=== PATIENT | female | born 1965 | race Caucasian/White ===

== ENCOUNTER 2023-04-18 16:01 | Emergency (ER) | payer OTHER ==
[~2023-04-18] VITALS: Ht 167.6 cm; Wt 91.0 kg
[~2023-04-18 16:01] MED LIST: ALBU18HF12 IH; BENZ-227 PO
[2023-04-18 16:02] VITALS: TEMP 98.4
[2023-04-18] MEDS ORDERED: IBUP-1506 PO (16:04)
[2023-04-18 17:24] VITALS: BP 139/86; PULSE 86; RESP 16
[2023-04-18] MEDS ORDERED: IBUP-1492 PO (18:04)
== END 2023-04-18 18:43 | disposition home or self-care (01) ==
LOC: EMS 16:02
DX: S60.221A Contusion of right hand, initial encounter (principal); F17.210 Nicotine dependence, cigarettes, uncomplicated; V49.88XA Car occupant (driver) (passenger) injured in other specified transport accidents, initial encounter; Y93.89 Activity, other specified; Y92.89 Other specified places as the place of occurrence of the external cause; Y99.8 Other external cause status
CPT/HCPCS: 99284; 73110-TC; 73130-TC; Z7502

== ENCOUNTER 2024-10-12 11:00 | Emergency (ER) | payer OTHER ==
[~2024-10-12] VITALS: Ht 167.6 cm; Wt 91.0 kg
[~2024-10-12 11:00] MED LIST changes: +IBUP-1492 PO; +IBUP-1506 PO
[2024-10-12] MEDS: SODIUM CHLORIDE 0.9% 250 ML IRRIG SOLUTION BOTTLE IRRIG ONE (13:31)
[2024-10-12] MEDS: ACETAMINOPHEN 500 MG TABLET PO ONE (13:31)
[2024-10-12] MEDS: BACITRACIN 0.9 GM PACKET OINTMENT TP ONE (13:31)
[2024-10-12 13:41] VITALS: BP 157/93; PULSE 97; RESP 18; TEMP 98.1; O2SAT 97
== END 2024-10-12 14:00 | disposition home or self-care (01) ==
LOC: EMS 11:06
DX: S01.01XA Laceration without foreign body of scalp, initial encounter (principal); F17.210 Nicotine dependence, cigarettes, uncomplicated; W22.09XA Striking against other stationary object, initial encounter; Y93.89 Activity, other specified; Y92.89 Other specified places as the place of occurrence of the external cause; Y99.8 Other external cause status
CPT/HCPCS: 12001; 99282; 99283

== ENCOUNTER 2024-10-20 17:22 | Emergency (ER) | payer OTHER ==
[~2024-10-20] VITALS: Ht 167.6 cm; Wt 90.9 kg
[2024-10-20 17:32] VITALS: TEMP 98.2
[2024-10-20] MEDS ORDERED: DOXY-354 PO (20:54)
[2024-10-20 21:15] VITALS: BP 121/70; PULSE 90; RESP 18; O2SAT 99
== END 2024-10-20 21:35 | disposition home or self-care (01) ==
LOC: EMS 17:22
DX: L02.412 Cutaneous abscess of left axilla (principal); L03.319 Cellulitis of trunk, unspecified
CPT/HCPCS: 99283; Z7502